=== PATIENT | female | born 1950 | race Hispanic/Latino ===

== ENCOUNTER 2020-03-01 23:01 | Emergency (ER) | payer OTHER ==
[2020-03-02] MEDS ORDERED: ACETAMINOPHEN 325 MG TAB ONE (00:19)
== END 2020-03-02 00:26 | disposition home or self-care (01) ==
LOC: EDH 23:01
DX: S82.041A Displaced comminuted fracture of right patella, initial encounter for closed fracture (principal); M25.461 Effusion, right knee; R03.0 Elevated blood-pressure reading, without diagnosis of hypertension; Z85.3 Personal history of malignant neoplasm of breast; W01.0XXA Fall on same level from slipping, tripping and stumbling without subsequent striking against object, initial encounter; Y93.89 Activity, other specified; Y92.89 Other specified places as the place of occurrence of the external cause; Y99.8 Other external cause status
CPT/HCPCS: 29505; 73562; 99282

== ENCOUNTER 2024-01-13 03:20 | Emergency (ER) | payer MEDICARE, OTHER ==
[~2024-01-13] VITALS: Ht 149.9 cm; Wt 65.8 kg
[2024-01-13 03:42] LABS: BASOPHILS # (AUTO) 0.05 K/uL (0.00-0.20); BASOPHILS % (AUTO) 0.5 % (0.0-5.0); HEMATOCRIT 39.6 % (36-48); IMMATURE GRANULOCYTE ABSOLUTE 0.05 K/uL (0-1); LYMPHOCYTES # (AUTO) 0.6 K/uL (1.0-4.8); LYMPHOCYTES % (AUTO) 5.2 % (21.0-51.0); MEAN CORPUSCULAR HGB CONC 33.6 g/dL (32.0-36.0); MEAN CORPUSCULAR VOLUME 92.3 fL (79-99); MONOCYTES # (AUTO) 0.2 K/uL (0.1-1.0); MONOCYTES % (AUTO) 2.3 % (3.0-13.0); NEUTROPHILS # (AUTO) 9.7 K/uL (1.8-7.7); NEUTROPHILS % (AUTO) 91.5 % (40.0-77.0); PLATELET COUNT (AUTO) 195 K/uL (130-400); RED BLOOD CELL COUNT(AUTO) 4.29 MIL/uL (4.00-5.50); RED CELL DISTRIBUTION WIDTH 12.5 % (11.0-15.5); WHITE BLOOD COUNT (AUTO) 10.6 K/uL (4.8-10.8)
[2024-01-13 03:55] LABS: CREATININE 0.8 mg/dL (0.5-1.0); POTASSIUM 3.5 mmol/L (3.5-5.1)
[2024-01-13] MEDS: ONDANSETRON 4MG INJ IVP ONE (03:57)
[2024-01-13] MEDS: PANTOPRAZOLE 40 MG/VIAL IVP ONE (03:57)
[2024-01-13] MEDS: DICYCLOMINE 20MG (10MG/ML) AMP IM ONE (03:58)
[2024-01-13 03:59] LABS: ALBUMIN 4.2 g/dL (3.5-5.0); BILIRUBIN,TOTAL 0.3 mg/dL (0.2-1.0); TOTAL PROTEIN, SERUM 7.7 g/dL (6.0-8.3)
[2024-01-13] MEDS ORDERED: MORPHINE 2 MG SYG IVP ONE (04:00)
[2024-01-13] MEDS: 0.9%NACL 1000ML 1,000 ML IV ONE (04:03)
[2024-01-13] MEDS: MORPHINE 4 MG SYG IVP ONE (04:17)
[2024-01-13] MEDS: MAG/ALUM/SIMETH 30 ML UDCUP PO ONE ×2 (04:42→07:38)
[2024-01-13] MEDS: LIDOCAINE HCL 2% VISCOUS 15 ML UDCUP PO ONE ×2 (04:42→07:39)
[2024-01-13] MEDS ORDERED: ESOM40CA PO (04:50)
[2024-01-13 05:02] LABS: WBC MORPHOLOGY CONSISTENT W/DIFF
[2024-01-13 07:04] LABS: APPEARANCE,URINE CLEAR (CLEAR); BILIRUBIN,URINE NEGATIVE (NEGATIVE); COLOR,URINE LIGHT-YELLOW (YELLOW); GLUCOSE, URINE (UA) 200 mg/dL (NEGATIVE); KETONES,URINE 60 mg/dL (NEGATIVE); LEUKOCYTE ESTERASE ,URINE NEGATIVE Leu/uL (NEGATIVE); NITRATE,URINE NEGATIVE (NEGATIVE); PROTEIN,URINE NEGATIVE (NEGATIVE); UROBILINOGEN,URINE 0.2 mg/dL (0.2-1.0)
[2024-01-13] MEDS: DICYCLOMINE HCL 10 MG/5 ML ML PO ONE (07:39)
[2024-01-13 08:15] LABS: ADD UA MICROSCOPIC YES; MUCUS,URINE RARE LPF (None Seen)
[2024-01-13] MEDS: MORPHINE 2 MG SYG IVP ONE (08:34)
[2024-01-13] MEDS: ACETAMINOPHEN 325 MG TAB PO ONE (08:37)
[2024-01-13 09:05] VITALS: BP 126/85; PULSE 76; RESP 18; O2SAT 96
== END 2024-01-13 09:25 | disposition home or self-care (01) ==
LOC: EDH 03:20
DX: K29.70 Gastritis, unspecified, without bleeding (principal); K44.9 Diaphragmatic hernia without obstruction or gangrene; K21.00 Gastro-esophageal reflux disease with esophagitis, without bleeding; Z79.899 Other long term (current) drug therapy; Z98.890 Other specified postprocedural states
CPT/HCPCS: 99285; 84484; 80053; 83690; 85025; 81003; 81001; 36415; 71045; 96372; 96374; 96375; 93005; J7030; J2405; J2270; J2470; J0500